=== PATIENT | male | born 1985 | race Caucasian/White ===

== ENCOUNTER 2019-09-12 15:46 | Emergency (ER) | payer BC ==
[~2019-09-12] VITALS: Ht 182.9 cm; Wt 86.2 kg
[2019-09-12 16:10] VITALS: Ht 182.9 cm; Wt 86.2 kg
[2019-09-12 16:50] VITALS: BP 148/87
== END 2019-09-12 16:50 | disposition home or self-care (01) ==
LOC: ED 15:46
DX: T16.1XXA Foreign body in right ear, initial encounter (principal); H60.91 Unspecified otitis externa, right ear; W45.8XXA Other foreign body or object entering through skin, initial encounter; Y93.89 Activity, other specified; Y92.89 Other specified places as the place of occurrence of the external cause; Y99.8 Other external cause status